=== PATIENT | female | born 1940 | race Caucasian/White ===

== ENCOUNTER 2018-06-24 10:57 | Day surgery (SDC) | payer MEDICARE, BC ==
[2018-06-24] MEDS ORDERED: KETOROLAC/HOME 0.5% SOL RIGHTEYE ONE ×3 (11:23→11:33)
[2018-06-24] MEDS: CYCLOPENTOLATE 1% SOL ONE ×3 (11:23→11:33)
[2018-06-24] MEDS: PHENYLEPHRINE HCL 10% OPHTHAL SOL ONE ×3 (11:23→11:33)
[2018-06-24] MEDS: TROPICAMIDE 1% OPHTH SOL ONE ×3 (11:23→11:33)
[2018-06-24] MEDS ORDERED: MOXIFLOXACIN-HOME SOL RIGHTEYE ONE ×2 (11:27→11:33)
[2018-06-24] MEDS ORDERED: MIDAZOLAM 2 MG/2 ML SOL ONE ×2 (11:30→13:32)
[2018-06-24] MEDS: PROPARACAINE HCL 0.5% OPHTHALMIC SOL ONE ×2 (11:33→12:42)
[2018-06-24] MEDS ORDERED: POVIDONE IODINE 5% SOL ONE (12:36)
[2018-06-24] MEDS ORDERED: LIDOCAINE HCL 2% MPF 10 ML SOL ONE (12:36)
[2018-06-24] MEDS ORDERED: BSS W/ 0.5 MG P.F. EPI 1 BOTTLE ONE (12:36)
[2018-06-24] MEDS ORDERED: ACETAZOLAMIDE 250 MG PO ONE ×2 (12:41→13:21)
[2018-06-24 13:15] VITALS: BP 145/66; PULSE 68; RESP 18; TEMP 97.4; O2SAT 97
== END 2018-06-24 13:45 | disposition home or self-care (01) | DRG 125 ==
LOC: SURG 10:57
PROVIDERS: ATTEND Ophthalmology
DX: H25.89 Other age-related cataract (principal); E11.9 Type 2 diabetes mellitus without complications
CPT/HCPCS: J2250; A9270-GY

== ENCOUNTER 2018-07-22 10:17 | Day surgery (SDC) | payer MEDICARE, BC ==
[2018-07-22] MEDS: CYCLOPENTOLATE 1% SOL ONE ×3 (10:45→10:52)
[2018-07-22] MEDS: TROPICAMIDE 1% OPHTH SOL ONE ×3 (10:45→10:52)
[2018-07-22] MEDS ORDERED: MOXIFLOXACIN-HOME SOL OP ONE ×2 (10:45→10:48)
[2018-07-22] MEDS: PHENYLEPHRINE HCL 10% OPHTHAL SOL ONE ×3 (10:45→10:52)
[2018-07-22] MEDS ORDERED: KETOROLAC/HOME 0.5% SOL OP ONE ×3 (10:45→10:52)
[2018-07-22] MEDS: PROPARACAINE HCL 0.5% OPHTHALMIC SOL ONE ×2 (10:52→12:09)
[2018-07-22 10:53] VITALS: O2SAT 96
[2018-07-22] MEDS ORDERED: MIDAZOLAM 2 MG/2 ML SOL ONE (11:26)
[2018-07-22] MEDS ORDERED: LIDOCAINE HCL 2% MPF 10 ML SOL ONE (11:31)
[2018-07-22] MEDS ORDERED: BSS W/ 0.5 MG P.F. EPI 1 BOTTLE ONE (11:31)
[2018-07-22] MEDS ORDERED: POVIDONE IODINE 5% SOL ONE (11:31)
[2018-07-22] MEDS ORDERED: ACETAZOLAMIDE 250 MG PO ONE (12:13)
[2018-07-22 12:45] VITALS: BP 151/65; PULSE 68; RESP 20; TEMP 97.2
== END 2018-07-22 13:05 | disposition home or self-care (01) | DRG 125 ==
LOC: SURG 10:17
PROVIDERS: ATTEND Ophthalmology
DX: H25.89 Other age-related cataract (principal); E11.9 Type 2 diabetes mellitus without complications
CPT/HCPCS: J2250; A9270-GY

== ENCOUNTER 2018-09-13 18:18 | Emergency (ER) | payer MEDICARE, BC ==
[2018-09-13 18:38] VITALS: TEMP 97
[2018-09-13] MEDS ORDERED: KETOROLAC TROMETHAMINE 30 MG/ML SOL IM ONE (20:05)
[2018-09-13] MEDS ORDERED: KETOROLAC TROMETHAMINE 30 MG/ML SOL ONE (20:06)
[2018-09-13 20:12] VITALS: RESP 18
[2018-09-13 21:45] VITALS: PULSE 60
[2018-09-13 21:47] VITALS: BP 154/56; O2SAT 100
== END 2018-09-13 21:35 | disposition home or self-care (01) | DRG 563 ==
LOC: ED 18:18
DX: S42.302A Unspecified fracture of shaft of humerus, left arm, initial encounter for closed fracture (principal); W17.89XA Other fall from one level to another, initial encounter; Y93.9 Activity, unspecified; Y92.019 Unspecified place in single-family (private) house as the place of occurrence of the external cause; Y99.9 Unspecified external cause status
CPT/HCPCS: 73030; 73060; 96372; 99283; 99284; J1885